=== PATIENT | female | born 1995 | race African-American/Black ===

== ENCOUNTER 2020-06-03 01:32 | Emergency (ER) | payer OTHER, SELFPAY ==
[2020-06-03 01:32] VITALS: BP 116/79; PULSE 79; RESP 15; TEMP 35.8; O2SAT 99
[2020-06-03 02:30] LABS: Basophils Percent Auto 0.4 % (0.2-1.2); Eosinophils Percent Auto 0.1 % (0-4.4); Hematocrit 34.6 % (37.0-47.0); Hemoglobin 10.6 g/dL (12.0-15.0); Immature Granulocyte Absolute 0.02 K/mm3 (0.00-0.031); Immature Granulocyte Percent A 0.3 % (0-0.5); Lymphocytes Absolute Auto 1.92 K/mm3 (0.9-3.2); Lymphocytes Percent Auto 26.6 % (18.3-44.2); Mean Corpuscular HGB Conc 30.6 g/dl (32-36); Mean Corpuscular Hemoglobin 23.1 pg (26-34); Mean Corpuscular Volume 75.4 fl (80-100); Mean Platelet Volume 10.8 fl (7.4-10.4); Monocytes Absolute Auto 0.5 K/mm3 (0.1-0.6); Monocytes Percent Auto 7.5 % (2.6-8.5); Neutrophils Absolute Auto 4.7 K/mm3 (1.3-6.7); Neutrophils Percent Auto 65.1 % (45.5-73.1); Platelet Count Result 342 k/mm3 (150-375); Red Blood Count 4.59 M/mm3 (4.2-5.4); Red Cell Distribution Width 17.8 % (11.5-14.5); White Blood Count 7.2 K/mm3 (4.5-10.0)
[2020-06-03 02:43] LABS: Acetaminophen < 10 ug/mL (10-30); Ethanol < 10 mg/dL (<10); Salicylate < 1.0 mg/dL (2-20)
[2020-06-03 02:56] LABS: Alanine Aminotransferase 19 U/L (4-35); Albumin Level 4.4 g/dL (3.5-5.1); Alkaline Phosphatase 99 U/L (38-126); Anion Gap 10 mmol/L (8-16); Aspartate Amino Transferase 26 U/L (14-36); Bilirubin,Total 0.3 mg/dL (0.2-1.3); Blood Urea Nitrogen 13 mg/dL (7-17); Calcium 9.6 mg/dL (8.4-10.2); Carbon Dioxide 26 mmol/L (22-30); Chloride 102 mmol/L (98-107); Estimated CRCL calculation 126 ml/min; Estimated Glomerular Filt Rate > 60; Glucose 98 mg/dL (65-105); Potassium 3.4 mmol/L (3.4-5.0); Sodium 138 mmol/L (137-145)
--- NOTE | 2020-06-03 03:08 | ED.GENADULT ---
HPI - General Adult General Chief complaint: Anxiety <Johnie Dunn MD - Last Filed: 06/03/20 03:10> Stated complaint: ANXIETY <Johnie Dunn MD - Last Filed: 06/03/20 03:10> Time Seen by Provider: 06/03/20 02:02 <Johnie Dunn MD - Last Filed: 06/03/20 03:10> History of Present Illness HPI narrative: Patient a 24-year-old female who presents the emergency department with chief complaint of anxiety. Patient states that she has been having chronic anxiety problems and has been riding the bus all day to help her anxiety when the bus stopped running this evening and she had to go back home she felt very anxious. The patient states that she does not have suicidal or homicidal ideation but does want to see a screener for mental health help <Johnie Dunn MD - Last Filed: 06/03/20 03:10> Related Data Home medications: Home Medications Medication Instructions Recorded Confirmed aripiprazole [Robert Goulda] mg IM 06/03/20 06/03/20 calcium carbonate-vitamin D3 tablet PO 06/03/20 clonazepam 06/03/20 mirtazapine mg 06/03/20 multivitamin tablet 06/03/20 phenazopyridine 06/03/20 propranolol 06/03/20 trazodone 06/03/20 <Johnie Dunn MD - Last Filed: 06/03/20 03:10> Allergies/adverse reactions: Allergies Allergy/AdvReac Type Severity Reaction Status Date / Time No Known Allergies Allergy Verified 06/03/20 10:59 <Johnie Dunn MD - Last Filed: 06/03/20 03:10> Review of Systems Review of Systems: Narrative: A 10 system review of systems was completed on the patient and is negative except for what is stated in the HPI. Nursing and ancillary documentation was reviewed. <Johnie Dunn MD - Last Filed: 06/03/20 03:10> PMFSH Comments Patient reports past medical history significant for anxiety Social history the patient denies illicit drug use <Johnie Dunn MD - Last Filed: 06/03/20 03:10> Exam Narrative: Exam Narrative: GENERAL: Well-appearing, well-nourished, and in no acute distress. HEAD: Normocephalic, atraumatic. EYES: PERRLA and EOMI. ENT: Nares clear, no rhinorrhea or epistaxis. Mucous membranes moist. NECK: Supple. CHEST: Clear to auscultation. No respiratory distress. HEART: Regular rate and rhythm. No murmur heard. Normal peripheral pulses. ABDOMEN: Soft, nontender, nondistended, normal active bowel sounds. EXTREMITIES: Normal range of motion. No edema. SKIN: Warm, dry, no rash. NEURO: No focal deficits. Alert and oriented x3. PSYCH: Normal mood and affect. <Johnie Dunn MD - Last Filed: 06/03/20 03:10> Course Course Emergency Course: Patient has been observed in the emergency department and patient was medically cleared for psychiatric evaluation. <Johnie Dunn MD - Last Filed: 06/03/20 03:10> Vital Signs Vital signs: Vital Signs Temperature 35.8 C L 06/03/20 01:32 Pulse Rate 79 06/03/20 01:32 Respiratory Rate 15 06/03/20 01:32 Blood Pressure 116/79 06/03/20 01:32 Pulse Oximetry 99 06/03/20 01:32 Temperature 36.3 C L 06/03/20 11:30 Pulse Rate 78 06/03/20 11:30 Respiratory Rate 18 06/03/20 11:30 Blood Pressure 116/88 06/03/20 11:30 Pulse Oximetry 98 06/03/20 11:30 <Johnie Dunn MD - Last Filed: 06/03/20 03:10> Vital Signs Temperature 35.8 C L 06/03/20 01:32 Pulse Rate 79 06/03/20 01:32 Respiratory Rate 15 06/03/20 01:32 Blood Pressure 116/79 06/03/20 01:32 Pulse Oximetry 99 06/03/20 01:32 Temperature 36.3 C L 06/03/20 11:30 Pulse Rate 78 06/03/20 11:30 Respiratory Rate 18 06/03/20 11:30 Blood Pressure 116/88 06/03/20 11:30 Pulse Oximetry 98 06/03/20 11:30 <Marielena Gamez MD - Last Filed: 06/03/20 15:21> Medical Decision Making Vital Signs Vital Signs: Vital Signs Temperature 35.8 C L 06/03/20 01:32 Pul
[2020-06-03 03:23] LABS: Add Urine Microscopic? YES; Appearance Urine Cloudy (Clear); Bacteria Urine Trace /hpf; Bilirubin Urine Negative (Negative); Blood Urine Negative (Negative); Color Urine Yellow (Yellow); Glucose Urine UA Negative (Negative); Ketones Urine 1+ mg/dL (Negative); Leukocyte Esterase Ur Negative LEU/UL (Negative); Mucus Urine Heavy /lpf; Nitrate Urine Negative (Negative); Protein Urine 1+ mg/dL (Negative); Specific Grav Ur 1.034 (1.001-1.035); Squamous Epithelial Cell Urine Many /hpf (Few); WBC Urine 0-3 /hpf
[2020-06-03 03:52] LABS: Amphetamine Screen Urine Negative (Negative); Barbiturate Screen Urine Negative (Negative); Benzodiazepines Screen Urine Negative (Negative); Cannabinoid Screen Urine Negative (Negative); Cocaine Screen Urine Negative (Negative); Methadone Screen Urine Negative (Negative); Opiate Screen Urine Negative (Negative); Phencyclidine Screen Urine Negative (Negative)
[2020-06-03 07:18] VITALS: BP 120/100; PULSE 80; RESP 18; O2SAT 95
--- NOTE | 2020-06-03 07:53 | PC.NURSE ---
Spoke with [facility] intake - taking information to psychiatrist - will call back whether pt will be accepted.
--- NOTE | 2020-06-03 08:25 | PC.NURSE ---
received report from Luly GARCES. patient here with increased anxiety. denies SI or HI at this time. notes reviewed. waiting for transfer to inpatient psychaiatric treatment. will continue to monitor.
--- NOTE | 2020-06-03 09:14 | PC.NURSE ---
Covid swab done at bedside. patient denies needs. refuses breakfast. minimal interactions with staff.
--- NOTE | 2020-06-03 09:41 | PC.NURSE ---
[facility] accepted transfer to [facility] 1330 Trip # [phone]
--- NOTE | 2020-06-03 10:02 | PC.NURSE ---
spoke with intake at [facility]. patient has been accepted to their facility with Dr. Gruber. # to call report [phone].
--- NOTE | 2020-06-03 10:30 | PC.NURSE ---
report called to Selena at [facility] [place] [phone]. patient can be transferred to room 211-A. advised [facility] can transfer patient today around 13:30. patient given breakfast. patient aware of all.
[2020-06-03 11:30] VITALS: BP 116/88; PULSE 78; RESP 18; TEMP 36.3; O2SAT 98
--- NOTE | 2020-06-03 11:30 | PC.NURSE ---
resting on stretcher. appears to be sleeping at times. appears to be comfortable. denies needs. aware of plan for transport to [place] around 1330.
--- NOTE | 2020-06-03 14:24 | PC.NURSE ---
[facility] here to transport patient to [facility]. copy of chart given to EMS for receiving facility. alert. oriented. denies needs prior to transfer. personal belongings given to EMS.
[2020-06-03 18:38] LABS: SARS-CoV-2 RNA PCR Negative
== END 2020-06-03 14:28 ==
PROVIDERS: Emergency Medicine; Emergency Provider Emergency Medicine
DX: F41.9 Anxiety disorder, unspecified (principal); R45.851 Suicidal ideations; Z20.828 Contact with and (suspected) exposure to other viral communicable diseases
CPT/HCPCS: 36415; 80053; 80307; 81001; 84443; 85025; 99285; C9803; U0003

== ENCOUNTER 2023-08-11 21:41 | Emergency (ER) | payer OTHER, SELFPAY ==
--- NOTE | ~2023-08-11 | CT_ITS ---
CT of the Abdomen and Pelvis: Indication: Abdominal pain Technique: 2.5 mm axial scans were obtained through the abdomen and pelvis following intravenous adm inistration of 100 cc of Omnipaque 350. Dose reduction technique was used on this scan by utilizing a utomated exposure control and iterative reconstruction technique. The dose-length product (DLP) was 5 86.56 mGy-cm. Findings: Scans through the lung bases are unremarkable. The liver, spleen, pancreas, gallbladder, adrenals and kidneys are within normal limits. No evidence of aortic aneurysm. No lymphadenopathy. No bowel obstruction or bowel wall thickening. There is no evidence to suggest acute appendicitis. Images through the pelvis were performed. Urinary bladder unremarkable. No adnexal mass seen. No asci alise. Impression: No significant abnormalities seen. Reviewed, dictated and finalized at [facility]. Impression: No significant abnormalities seen.
[2023-08-11 21:47] VITALS: BP 133/86; PULSE 99; RESP 15; TEMP 36.4; O2SAT 100
[2023-08-11 23:12] LABS: Basophils Percent Auto 0.4 % (0.2-1.2); Eosinophils Percent Auto 0.2 % (0-4.4); Hematocrit 38.3 % (37.0-47.0); Hemoglobin 11.6 g/dL (12.0-15.0); Immature Granulocyte Absolute 0.03 K/mm3 (0.00-0.031); Immature Granulocyte Percent A 0.3 % (0-0.5); Lymphocytes Absolute Auto 1.85 K/mm3 (0.9-3.2); Lymphocytes Percent Auto 17.8 % (18.3-44.2); Mean Corpuscular HGB Conc 30.3 g/dl (32-36); Mean Corpuscular Hemoglobin 23.6 pg (26-34); Mean Platelet Volume 10.5 fl (7.4-10.4); Monocytes Absolute Auto 0.6 K/mm3 (0.1-0.6); Neutrophils Absolute Auto 7.9 K/mm3 (1.3-6.7); Neutrophils Percent Auto 75.3 % (45.5-73.1); Platelet Count Result 372 k/mm3 (150-375); Red Blood Count 4.91 M/mm3 (4.2-5.4); Red Cell Distribution Width 16.3 % (11.5-14.5); White Blood Count 10.4 K/mm3 (4.5-10.0)
[2023-08-11 23:24] LABS: Alanine Aminotransferase 18 U/L (6-35); Albumin Level 4.9 g/dL (3.5-5.1); Alkaline Phosphatase 117 U/L (38-126); Anion Gap 8 mmol/L (8-16); Aspartate Amino Transferase 24 U/L (14-36); Bilirubin,Total 0.2 mg/dL (0.2-1.3); Blood Urea Nitrogen 9 mg/dL (7-17); Calcium 10.1 mg/dL (8.4-10.2); Carbon Dioxide 29 mmol/L (22-30); Chloride 102 mmol/L (98-107); Estimated CRCL calculation 94 ml/min; Estimated Glomerular Filt Rate > 60; Glucose 103 mg/dL (65-110); Lipase 110 U/L (23-300); Potassium 3.6 mmol/L (3.4-5.0); Sodium 139 mmol/L (137-145)
[2023-08-11 23:39] VITALS: BP 117/74; PULSE 81; RESP 18; O2SAT 99
--- NOTE | 2023-08-12 00:21 | ED.ABDPAIN ---
HPI - Abdominal Pain General Chief Complaint: Abdominal Pain Stated Complaint: abdominal Time Seen by Provider: 08/11/23 23:29 Source: patient Mode of arrival: ambulatory Limitations: no limitations History of Present Illness HPI narrative: This is a 28-year-old female that presents to the emergency department for abdominal pain. Ongoing since earlier this morning. Reports aching pain in her abdomen diffusely. Denies fever, vomiting, dysuria or diarrhea. Related Data Home Medications Medication Instructions Recorded Confirmed aripiprazole 400 mg intramuscular mg IM 06/03/20 06/03/20 suspension,extended release (Abilify Maintena) calcium carbonate 600 mg-vitamin tablet PO 06/03/20 D3 10 mcg (400 unit) tablet clonazepam 0.5 mg tablet 06/03/20 mirtazapine 30 mg tablet mg 06/03/20 multivitamin tablet 06/03/20 phenazopyridine 200 mg tablet 06/03/20 propranolol 10 mg tablet 06/03/20 trazodone 100 mg tablet 06/03/20 Allergies Allergy/AdvReac Type Severity Reaction Status Date / Time No Known Allergies Allergy Verified 06/03/20 10:59 Review of Systems Review of Systems: CONSTITUTIONAL: Denies fever GASTROINTESTINAL: Reports abdominal pain, nausea. Denies vomiting, or diarrhea. GENITOURINARY: Denies dysuria or hematuria. All systems reviewed & are unremarkable except as noted in HPI and below PMFSH Past Medical History Medical History (Updated 08/12/23 @ 03:55 by Jessi No PA-C) History of anxiety History of depression Social History Social History (Updated 08/12/23 @ 00:27 by Jessi No PA-C) Substance use: never Exam Narrative: GENERAL: Well-appearing, well-nourished, and in no acute distress. HEAD: Normocephalic, atraumatic. EYES: EOMI. CHEST: Clear to auscultation. No respiratory distress. No wheezes rales or rhonchi HEART: Regular rate and rhythm. No murmur heard. Normal peripheral pulses. ABDOMEN: Soft, nondistended, normal active bowel sounds. Tender to palpation throughout the abdomen, without guarding EXTREMITIES: Normal range of motion. No edema. SKIN: Warm, dry, no rash. NEURO: No focal deficits. Alert and oriented x3. PSYCH: Normal mood and affect Course Course Emergency Course: Patient updated on her workup and agrees with plan of care Vital Signs Vital signs: Vital Signs Temperature 97.6 F 08/11/23 21:47 Pulse Rate 99 08/11/23 21:47 Respiratory Rate 15 08/11/23 21:47 Blood Pressure 133/86 08/11/23 21:47 Pulse Oximetry 100 08/11/23 21:47 Oxygen Delivery Room Air 08/11/23 21:47 Temperature 97.6 F 08/11/23 21:47 Pulse Rate 87 08/12/23 02:03 Respiratory Rate 16 08/12/23 02:03 Blood Pressure 108/66 08/12/23 02:03 Pulse Oximetry 98 08/12/23 02:03 Oxygen Delivery Room Air 08/11/23 21:47 MDM - Abdominal Pain MDM Narrative Medical decision making narrative: Patient presents to the emergency department for abdominal discomfort. She is afebrile and nontoxic appearing. Her vitals are stable. CBC with mild leukocytosis to 10.4. Also shows microcytic anemia hemoglobin of 11.6. Metabolic panel and lipase without concerning findings. Urine without evidence of infection. This will be sent for culture. Patient will be started on oral antibiotics. CT abdomen and pelvis shows possible cystitis. No other acute findings. Patient was updated on her workup and agrees with plan of care. She is to follow up with primary provider. She was given warnings to return to the ER Differential Diagnosis Differential diagnosis: Likely abdominal pain, constipation, diverticulitis and other (UTI) Lab Data Attestation: I reviewed the patient's lab results. 08/11/23 22:53 08/11/23 22:53 Labs: Lab Results 08/11/23 08/12/23 Range/Units 22:53 00:36 WBC 10.4 H (4.5-10.0) K/mm3 RBC 4.91 (4.2-5.4) M/mm3 Hgb 11.6 L (12.0-15.0) g/dL Hct 38.3 (37.0-47.0) % MCV 78.0 L
[2023-08-12 00:27] VITALS: BP 111/74; PULSE 93; RESP 15; O2SAT 99
[2023-08-12] MEDS: ONDANSETRON INJ 4 MG/2 ML VIAL IV PUSH (00:28)
[2023-08-12] MEDS: FAMOTIDINE 20 MG/2 ML VIAL IV PUSH (00:28)
[2023-08-12 00:45] LABS: Appearance Urine Cloudy (Clear); Bacteria Urine 2+ /hpf; Bilirubin Urine Negative (Negative); Blood Urine Negative (Negative); Color Urine Yellow (Yellow); Glucose Urine UA Negative (Negative); Ketones Urine Negative (Negative); Leukocyte Esterase Ur 2+ LEU/UL (Negative); Nitrate Urine Negative (Negative); Non Pathogenic Casts 0-2; Protein Urine Negative (Negative); RBC Urine 0-2 /hpf (0-2); Specific Grav Ur 1.015 (1.001-1.035); Squamous Epithelial Cell Urine Moderate /hpf (Few)
[2023-08-12 00:46] LABS: Add Urine Microscopic? YES
[2023-08-12 02:03] VITALS: BP 108/66; PULSE 87; RESP 16; O2SAT 98
== END 2023-08-12 04:29 | disposition home or self-care (01) ==
PROVIDERS: Emergency Provider Physician Assistant
DX: N30.00 Acute cystitis without hematuria (principal); F41.9 Anxiety disorder, unspecified; F32.A Depression, unspecified
CPT/HCPCS: 36415; 74177; 80053; 81001; 81025; 83690; 85025; 87086; 96374; 96375; 99284; J2405; Q9967